=== PATIENT | male | born 1990 | race African-American/Black ===

== ENCOUNTER 2018-10-05 04:21 | Emergency (ER) | payer OTHER ==
[2018-10-05] MEDS: Sodium Chloride 0.9% 1,000 ML IV ONE ×2 (04:25→05:34)
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
[2018-10-05] MEDS: Ketorolac 30 MG/ML SDV IVPUSH ONE (05:34)
== END 2018-10-05 06:23 | disposition home or self-care (01) ==
LOC: FB.ED 04:21
DX: S50.811A Abrasion of right forearm, initial encounter (principal); E86.0 Dehydration; E11.649 Type 2 diabetes mellitus with hypoglycemia without coma; M25.511 Pain in right shoulder; R10.31 Right lower quadrant pain; V89.2XXA Person injured in unspecified motor-vehicle accident, traffic, initial encounter
CPT/HCPCS: 36415; 70450; 72125; 73030; 73502; 80048; 82962; 85025; 93005; 96361; 96374; 99285; G0480; J1885; J7030